=== PATIENT | male | born 1985 | race African-American/Black ===

== ENCOUNTER 2021-12-25 21:05 | Emergency (ER) | payer BC ==
[~2021-12-25] VITALS: Ht 193 cm; Wt 113.4 kg
[2021-12-25 21:10] VITALS: BP 136/90
--- NOTE | 2021-12-25 21:13 | NUR ---
TO LOBBY A/W BED AMBULATORY
--- NOTE | 2021-12-25 23:35 | NUR ---
PATIENT CALLED TO BED , NO RESPONSE PATIENT LEFT WITHOUT BEING SEEN BY DR. DORAN. NO FURTHER CARE PROVIDED FOR PATIENT.
--- NOTE | 2021-12-25 23:40 | NUR ---
CALLED FOR THR SECOND TIME , NO RESPONSE
--- NOTE | 2021-12-25 23:45 | NUR ---
CALLED FOR THE THIRD TIME , NO RESPONSE
== END 2021-12-25 23:35 | disposition left against medical advice (07) ==
LOC: MED 21:05
DX: M79.644 Pain in right finger(s) (principal); Z53.21 Procedure and treatment not carried out due to patient leaving prior to being seen by health care provider